=== PATIENT | male | born 2000 | race Two or more races ===

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

== ENCOUNTER 2019-05-05 19:08 | Emergency (ER) | payer OTHER ==
[~2019-05-05] VITALS: Ht 180.3 cm; Wt 145.4 kg
[2019-05-05] MEDS ORDERED: CITA10TA5 PO (19:33)
[2019-05-05 20:02] LABS: HEMATOCRIT 48.3 % (42.0-52.0); HEMOGLOBIN 15.8 g/dl (13.5-17.5); MEAN CORPUSCULAR HEMOGLOBIN 28.8 pg (27.0-33.0); MEAN CORPUSCULAR HGB CONC 32.7 g/dl (32.0-36.5); PLATELET COUNT, AUTOMATED 218 10^3/uL (150-450); RED BLOOD COUNT 5.49 10^6/uL (4.30-6.10); WHITE BLOOD COUNT 8.2 10^3/uL (4.0-10.0)
[2019-05-05 20:27] LABS: ACETAMINOPHEN LEVEL < 2.0 UG/ML (10.0-30.0); ALBUMIN 4.5 GM/DL (3.2-5.2); ALT/SGPT 39 U/L (12-78); BILIRUBIN,DIRECT < 0.1 MG/DL (0.0-0.2); BILIRUBIN,TOTAL 0.3 MG/DL (0.2-1.0); BLOOD UREA NITROGEN 18 MG/DL (7-18); CALCIUM LEVEL 9.6 MG/DL (8.5-10.1); CARBON DIOXIDE LEVEL 30 MEQ/L (21-32); CHLORIDE LEVEL 104 MEQ/L (98-107); ETHYL ALCOHOL (ETHANOL) < 0.003 % (0.000-0.010); GLUCOSE, FASTING 98 MG/DL (70-100); POTASSIUM SERUM 4.3 MEQ/L (3.5-5.1); SALICYLATE LEVEL < 1.7 MG/DL (5.0-30.0); SODIUM LEVEL 138 MEQ/L (136-145); TOTAL PROTEIN 8.2 GM/DL (6.4-8.2)
[2019-05-05 20:44] LABS: AMPHETAMINES LEVEL URINE NEGATIVE (NEGATIVE); BARBITURATES URINE NEGATIVE (NEGATIVE); BENZODIAZEPINES URINE NEGATIVE (NEGATIVE); CANNABINOIDS URINE NEGATIVE (NEGATIVE); COCAINE METABOLITE URINE NEGATIVE (NEGATIVE); METHADONE URINE NEGATIVE (NEGATIVE); OPIATES URINE NEGATIVE (NEGATIVE); PHENCYCLIDINE URINE NEGATIVE (NEGATIVE)
[2019-05-05 20:51] VITALS: BP 149/79
== END 2019-05-05 20:53 | disposition home or self-care (01) ==
LOC: M ED 19:08
DX: F98.9 Unspecified behavioral and emotional disorders with onset usually occurring in childhood and adolescence (principal); F43.0 Acute stress reaction; Z79.899 Other long term (current) drug therapy; Z88.8 Allergy status to other drugs, medicaments and biological substances
CPT/HCPCS: 80048; 80076; 80307; 84443; 85027; 99284; G0480

== ENCOUNTER 2019-12-28 17:10 | Emergency (ER) | payer OTHER ==
[~2019-12-28] VITALS: Ht 182.9 cm; Wt 157.7 kg
[~2019-12-28 17:10] MED LIST: CITA10TA5 PO
[2019-12-28 17:17] VITALS: BP 132/80
[2019-12-28 18:13] LABS: HEMATOCRIT 47.3 % (42.0-52.0); HEMOGLOBIN 15.6 g/dl (13.5-17.5); MEAN CORPUSCULAR HEMOGLOBIN 28.9 pg (27.0-33.0); MEAN CORPUSCULAR VOLUME 87.6 fl (80.0-96.0); PLATELET COUNT, AUTOMATED 204 10^3/uL (150-450); WHITE BLOOD COUNT 7.2 10^3/uL (4.0-10.0)
[2019-12-28 18:15] LABS: AMPHETAMINES LEVEL URINE NEGATIVE (NEGATIVE); BARBITURATES URINE NEGATIVE (NEGATIVE); BENZODIAZEPINES URINE NEGATIVE (NEGATIVE); CANNABINOIDS URINE NEGATIVE (NEGATIVE); COCAINE METABOLITE URINE NEGATIVE (NEGATIVE); METHADONE URINE NEGATIVE (NEGATIVE); OPIATES URINE NEGATIVE (NEGATIVE); PHENCYCLIDINE URINE NEGATIVE (NEGATIVE)
[2019-12-28 18:49] LABS: ACETAMINOPHEN LEVEL < 2.0 UG/ML (10.0-30.0); ALBUMIN 4.3 GM/DL (3.2-5.2); ALT/SGPT 34 U/L (12-78); BILIRUBIN,DIRECT < 0.1 MG/DL (0.0-0.2); BILIRUBIN,TOTAL 0.3 MG/DL (0.2-1.0); BLOOD UREA NITROGEN 14 MG/DL (7-18); CALCIUM LEVEL 9.5 MG/DL (8.5-10.1); CARBON DIOXIDE LEVEL 31 MEQ/L (21-32); CHLORIDE LEVEL 105 MEQ/L (98-107); CREATININE FOR GFR 0.95 MG/DL (0.70-1.30); ETHYL ALCOHOL (ETHANOL) 0.004 % (0.000-0.010); GLUCOSE, FASTING 79 MG/DL (70-100); POTASSIUM SERUM 4.3 MEQ/L (3.5-5.1); SALICYLATE LEVEL < 1.7 MG/DL (5.0-30.0); SODIUM LEVEL 137 MEQ/L (136-145); THYROID STIMULATING HORMONE 0.817 uIU/ML (0.463-3.98); TOTAL PROTEIN 7.6 GM/DL (6.4-8.2)
== END 2019-12-28 20:18 | disposition home or self-care (01) ==
LOC: M ED 17:10
DX: F43.0 Acute stress reaction (principal); F41.9 Anxiety disorder, unspecified; Z79.899 Other long term (current) drug therapy; Z88.1 Allergy status to other antibiotic agents
CPT/HCPCS: 80048; 80076; 80307; 84443; 85027; 99284; G0480

== ENCOUNTER 2020-10-13 14:17 | Inpatient (IN) | payer OTHER ==
[~2020-10-13] VITALS: Ht 182.9 cm; Wt 150.7 kg
[2020-10-13 15:00] LABS: HEMATOCRIT 45.8 % (42.0-52.0); HEMOGLOBIN 15.3 g/dl (13.5-17.5); MEAN CORPUSCULAR HEMOGLOBIN 29.1 pg (27.0-33.0); MEAN CORPUSCULAR HGB CONC 33.4 g/dl (32.0-36.5); MEAN CORPUSCULAR VOLUME 87.2 fl (80.0-96.0); PLATELET COUNT, AUTOMATED 182 10^3/uL (150-450); RED BLOOD COUNT 5.25 10^6/uL (4.30-6.10); WHITE BLOOD COUNT 6.6 10^3/uL (4.0-10.0)
[2020-10-13 15:25] LABS: AMPHETAMINES LEVEL URINE NEGATIVE (NEGATIVE); BARBITURATES URINE NEGATIVE (NEGATIVE); BENZODIAZEPINES URINE NEGATIVE (NEGATIVE); CANNABINOIDS URINE POSITIVE (NEGATIVE); COCAINE METABOLITE URINE NEGATIVE (NEGATIVE); METHADONE URINE NEGATIVE (NEGATIVE); OPIATES URINE NEGATIVE (NEGATIVE); PHENCYCLIDINE URINE NEGATIVE (NEGATIVE)
[2020-10-13 15:40] LABS: ACETAMINOPHEN LEVEL < 2.0 UG/ML (10.0-30.0); ALBUMIN 4.5 GM/DL (3.2-5.2); ALT/SGPT 29 U/L (12-78); BILIRUBIN,DIRECT 0.1 MG/DL (0.0-0.2); BILIRUBIN,TOTAL 0.7 MG/DL (0.2-1.0); BLOOD UREA NITROGEN 14 MG/DL (7-18); CALCIUM LEVEL 9.4 MG/DL (8.5-10.1); CARBON DIOXIDE LEVEL 28 MEQ/L (21-32); CHLORIDE LEVEL 107 MEQ/L (98-107); CREATININE FOR GFR 0.82 MG/DL (0.70-1.30); ETHYL ALCOHOL (ETHANOL) < 0.003 % (0.000-0.010); GLOMERULAR FILTRATION RATE > 60.0 (>60); GLUCOSE, FASTING 93 MG/DL (70-100); SALICYLATE LEVEL < 1.7 MG/DL (5.0-30.0); SODIUM LEVEL 139 MEQ/L (136-145); THYROID STIMULATING HORMONE 0.951 uIU/ML (0.358-3.740); TOTAL PROTEIN 7.2 GM/DL (6.4-8.2)
[2020-10-13] MEDS ORDERED: LOSA50TA88 PO (16:08)
[2020-10-13 19:05] LABS: RSV AMPLIFICATION NEGATIVE (NEGATIVE)
[2020-10-13] MEDS ORDERED: LOSARTAN 50MG TABLET PO ONE (19:15)
[2020-10-13] MEDS ORDERED: CitaloPRAM (CeleXA) 10 MG TABLET PO ONE (19:15)
[2020-10-13] MEDS ORDERED: ACETAMINOPHEN 325 MG TAB PO ONE (19:25)
[2020-10-13] MEDS ORDERED: NICOTINE 21MG/24HR 1 EA TRANSDERMAL TD ONE (19:25)
[2020-10-13] MEDS ORDERED: MAALOX 30 ML SUSP *UDC PO PRN (19:50)
[2020-10-13] MEDS ORDERED: MOM 30ML SUSPENSION UDC PO PRN (19:50)
[2020-10-13] MEDS ORDERED: ACETAMINOPHEN TAB 650MG DOSE (2X325MG) PO PRN (19:50)
[2020-10-13] MEDS ORDERED: traZODone 50 MG TAB PO PRN (19:50)
[2020-10-13] MEDS: LOSARTAN 50MG TABLET PO SCH (20:18)
[2020-10-13] MEDS ORDERED: CitaloPRAM (CeleXA) 10 MG TABLET PO SCH (21:00)
[2020-10-13 22:22] VITALS: BP 144/94
[2020-10-14] MEDS: QUEtiapine FUMARATE 25 MG TAB PO PRN ×2 (00:31→21:57)
[2020-10-14] MEDS: NICOTINE 21MG/24HR 1 EA TRANSDERMAL TD SCH (08:46)
--- NOTE | 2020-10-14 10:00 | MHHPE ---
[facility] HISTORY AND PHYSICAL DATE OF ADMISSION: 10/13/2020 IDENTIFYING DATA: A 20-year-old male, single, father of one child, living with his mother and father, working in [employer], who was admitted for suicidal thoughts. His legal status is 9.39. CHIEF COMPLAINT: "I wanted to make a point." HISTORY OF PRESENT ILLNESS: The patient reports he was overwhelmed and upset because of arguments with his father and mother. He pulled out a knife and threatened them that he would cut his wrist and they called the police and he was brought to the hospital. He reported he had no real intention. However, he wanted to make a point that he was upset. However, his mother thinks that he is depressed and he needs treatment. The patient reportedly ran out of his medication for the last two to three days and he became more irritable. Denies any depression or any signs of depression. PAST PSYCHIATRIC HISTORY: This is his first psychiatric hospitalization. He was on Citalopram 10 mg once daily. He was seeing a therapist. When he was 11 years old he tried to hang himself. However, he came to the ER and was discharged from there. DRUG/ALCOHOL HISTORY: The patient abuses cannabis three times a week. LEGAL HISTORY: Denies legal problems. MEDICAL HISTORY: The patient has a history of sleep apnea and hypertension. FAMILY HISTORY: Father and sister have history of depression. SOCIAL HISTORY: He was raised by his biological parents. He has two brothers, one sister. He reports that his father and mother are always argumentative. He completed high school graduation. Denies any physical or sexual abuse. MENTAL STATUS EXAMINATION: Well built, obese, tall. Made good eye contact. Mood is depressed. Affect is mood congruent. Psychomotor activity is normal. Thought process is linear, goal directed. Thought content: Denied any suicidal or homicidal ideas. Memory immediate, remote, recent is good. VITAL SIGNS: Temperature 98.2, pulse is 83, respiratory rate is 18, blood pressure is 144/84, pulse oximetry 98%. LABS: CBC within normal limits. CMP within normal limits. Toxicology was positive for cannabis. REVIEW OF SYSTEMS: Constitutional: Denied any night sweats or fever. HEENT: Negative for epistaxis, headache, hearing loss or sore throat. Respiratory: No cough. No shortness of breath or wheezing. Cardiovascular: Negative for chest pain, dyspnea. Gastrointestinal: No abdominal pain. No change in bowel habits. Genitourinary: No dysuria, no trouble voiding or hematuria. Neurologic: Negative for gait disturbances, numbness, and tingling. DIAGNOSIS: Depressive disorder not otherwise specified. Rule out major depressive disorder, recurrent. PLAN: Plan is to admit the patient to [facility]. He will be followed up by hospitalist for medical needs. The patient will be seen by [employer] [facility] and Case Management. He will be placed on all appropriate precautions like suicide precaution. He will participate in individual, group, and milieu therapy. His Citalopram medication will be increased to 20 mg once daily. The patient gets Seroquel for his sleep and depression as needed. ESTIMATED LENGTH OF STAY: Four to five days. Time spent is 30 minutes.
--- NOTE | 2020-10-14 17:01 | HPEPDOC ---
[facility] Medical History & Physical Date of Admission Oct 13, 2020 Date of Service: Oct 14, 2020 History and Physical CHIEF COMPLAINT: Self harm HISTORY OF PRESENT ILLNESS: Mr. Nelson is a 20 year old male who is in the inpatient mental health unit after threatening to self harm. He was upset during an argument with his parents and pulled out a knife and threatened to slit his wrist. Police was called, and he was brought to the ED. I saw him in the afternoon. He was pleasant. He is feeling well. Denies fever/chills, chest pain, dyspnea, abdominal pain, or dysuria. PAST MEDICAL HISTORY: 1. Hypertension 2. Depression 3. Pre-diabetes PAST SURGICAL HISTORY: 1. Appendectomy 2. Tonsillectomy SOCIAL HISTORY: Tobacco use: Vapes for the past 4 years ETOH: 1 or 2 drinks a week Illicit drug use: Marijuana every other day FAMILY HISTORY: Father: Bipolar, high cholesterol, pre-diabetes Mother: Diabetes Mellitus ALLERGIES: Please see below. REVIEW OF SYSTEMS: CONSTITUTIONAL: Denies fever or chills. HEENT: Denies sore throat. CARDIOVASCULAR: Denies chest pain. Denies lightheadedness. RESPIRATORY: Denies dyspnea. Denies cough. GASTROINTESTINAL: Denies abdominal pain. GENITOURINARY: Denies dysuria. SKIN: Denies rashes. HEMATOLOGY/ONCOLOGY: Denies bruises. MUSCULOSKELETAL: Denies weakness. NEUROLOGICAL: Denies neuropathy. PSYCHIATRIC: Reports depression. HOME MEDICATIONS: Please see below. PHYSICAL EXAMINATION: VITAL SIGNS: Temperature 98.2, pulse 83, respiratory rate 18, blood pressure 144/94, pulse oximetry 98% on room air. GENERAL APPEARANCE: Comfortable, in no apparent distress HEENT: Head normocephalic, atraumatic, EOMI, Sclera clear Neck: Supple CARDIOVASCULAR: Regular rate and rhythm LUNGS: Lungs clear to auscultation bilaterally ABDOMEN: Soft, non-tender, normal bowel sounds MUSCULOSKELETAL: Muscle strength 5/5 in extremities EXTREMITIES: No pitting edema CUTANEOUS: Warm and dry NEUROLOGICAL: CN3-12 grossly intact PSYCHIATRIC: Normal mood and affect LABORATORY DATA: See below. IMAGING: None MICROBIOLOGY: Please see below. ASSESSMENT and PLAN: 1. Suicidal Thoughts -Being managed in the inpatient mental health unit 2. Hypertension -Continue losartan 3. Pre-diabetes -Follow up regularly with PCP. -Avoid sweets, reduce intake of proceeded carbohydrates. Obtain at least 150 min per week of moderate intensity aerobic exercise Thank you for consulting us. We will sign off at this time. If there are any further question or concerns, please do not hesitate to contact us. Vital Signs Vital Signs Date Time Temp Pulse Resp B/P (MAP) Pulse Ox O2 Delivery O2 Flow Rate FiO2 10/14/20 09:59 Room Air 10/13/20 22:22 98.2 83 18 144/94 (111) 98 Laboratory Data Labs 24H Laboratory Tests 2 10/13/20 18:14: Coronavirus (COVID-19)(PCR) NEGATIVE, Influenza Type A (RT-PCR) NEGATIVE, Influenza Type B (RT-PCR) NEGATIVE, Respiratory Syncytial Virus (PCR) NEGATIVE Home Medications Scheduled Citalopram Hydrobromide (Citalopram HBr) 10 Mg Tablet, 10 MG PO QHS Losartan Potassium (Losartan Potassium) 50 Mg Tablet, 50 MG PO QHS Allergies Coded Allergies: gentamicin (Verified Allergy, Mild, rash/hives, 05/05/19) A-FIB/CHADSVASC A-FIB History Current/History of A-Fib/PAF?: No ADAM ABRAHAM DO Oct 14, 2020 17:01
[2020-10-14 17:31] VITALS: BP 150/72
[2020-10-14] MEDS: CitaloPRAM (CeleXA) 10 MG TABLET PO SCH (20:17)
[2020-10-14] MEDS: LOSARTAN 50MG TABLET PO SCH (20:21)
[2020-10-15 06:37] VITALS: BP 130/79
[2020-10-15] MEDS: NICOTINE 21MG/24HR 1 EA TRANSDERMAL TD SCH (09:34)
[2020-10-15 18:00] VITALS: BP 155/85
[2020-10-15] MEDS: LOSARTAN 50MG TABLET PO SCH (20:38)
[2020-10-15] MEDS: CitaloPRAM (CeleXA) 10 MG TABLET PO SCH (20:38)
[2020-10-15] MEDS: QUEtiapine FUMARATE 100 MG TAB PO SCH (21:41)
[2020-10-15] MEDS: traZODone 50 MG TAB PO PRN (22:39)
[2020-10-16 06:45] VITALS: BP 154/82
[2020-10-16] MEDS: NICOTINE 21MG/24HR 1 EA TRANSDERMAL TD SCH (08:15)
[2020-10-16 18:09] VITALS: BP 133/85
[2020-10-16] MEDS: LOSARTAN 50MG TABLET PO SCH (20:10)
[2020-10-16] MEDS: CitaloPRAM (CeleXA) 10 MG TABLET PO SCH (20:10)
[2020-10-16] MEDS: traZODone 50 MG TAB PO PRN (21:58)
[2020-10-16] MEDS: QUEtiapine FUMARATE 100 MG TAB PO SCH (21:58)
[2020-10-17 06:22] VITALS: BP 130/66
[2020-10-17] MEDS: NICOTINE 21MG/24HR 1 EA TRANSDERMAL TD SCH (08:22)
--- NOTE | 2020-10-17 10:51 | MHIPN ---
[facility] PSYCHIATRIC PROGRESS NOTE DATE OF SERVICE: 10/16/2020 HISTORY OF PRESENT ILLNESS: The patient today states that he is doing very well. He says "I slept like a rock." He says he took a combination of Seroquel and trazodone and that worked well for him. MENTAL STATUS EXAM: This patient is alert and oriented times 3. Eye contact is good. He is verbally spontaneous. There is no formal thought disorder noted. Mood is good. Affect is appropriate to mood. He is not psychotic, suicidal or homicidal. Concentration and memory is good. Insight and judgment good. DIAGNOSES: 1. Unspecified depressive disorder. 2. Rule out major depression. TREATMENT PLAN: At this point we will continue to monitor the patient for continued elevation and stabilization of his mood and continued resolution of suicidal and/or homicidal ideations.
--- NOTE | 2020-10-17 11:58 | MHIPN ---
[facility] PSYCHIATRIC PROGRESS NOTE DATE OF SERVICE: 10/15/2020 HISTORY OF PRESENT ILLNESS: The patient today tells me that he is feeling "good." He says he is not depressed, he is not suicidal and he slept better although not at baseline because he says the fact that they keep checking in the room wakes him up. MENTAL STATUS EXAM: This patient is alert and oriented times 3. Eye contact is good. He is verbally spontaneous. There is no formal thought disorder noted. Mood is good. Affect is appropriate. Patient is not psychotic, suicidal or homicidal. Concentration is fair. Memory is intact. Insight and judgment is fair. DIAGNOSES: 1. Unspecified depressive disorder. 2. Rule out major depressive disorder. TREATMENT PLAN: At this point we will continue to monitor the patient for continued elevation and stabilization of his mood and for resolution of any suicidal or homicidal ideations. I will increase the Seroquel to 100 mg at bedtime to see if he sleeps better and I will also order trazodone 50 mg at bedtime p.r.n. for insomnia in case he needs it. [place]DRaven
--- NOTE | 2020-10-17 14:22 | MHIPN ---
PROGRESS NOTE DATE: 10/17/2020 SUBJECTIVE: "I'm doing fine and I want to see my son." "I'll be going back to work after to the discharge." OBJECTIVE: This is a 20-year-old male single father of one child living with is mother and father, working at [employer], who was admitted because of suicidal thoughts. The patient reports that he never meant to hurt himself; however, he wanted to make a point with the family. He has some symptoms of depression. He did not take his medication for about two to three days and has become more irritable. This is his first psychiatric hospitalization. The patient abuses cannabis three times a week. The patient also has sleep apnea and hypertension issues. Currently the patient is stable. VITAL SIGNS: Temperature 97.3, pulse 63, respirations 18, blood pressure 130/66, pulse oximetry 98%. LABORATORY DATA: CBC within normal limits. CMP within normal limits. Toxicology was positive for cannabis. CURRENT MEDICATIONS: 1. Quetiapine 100 mg at night. 2. Citalopram 20 mg at night. DIAGNOSIS: Major depressive disorder. PLAN: Observe him for 24 hours and discharge him tomorrow. TIME SPENT: 25 minutes.
[2020-10-17 18:36] VITALS: BP 132/76
[2020-10-17 20:33] VITALS: BP 132/76
[2020-10-17] MEDS: LOSARTAN 50MG TABLET PO SCH (20:33)
[2020-10-17] MEDS: CitaloPRAM (CeleXA) 10 MG TABLET PO SCH (20:33)
[2020-10-17] MEDS: QUEtiapine FUMARATE 100 MG TAB PO SCH (21:40)
[2020-10-17] MEDS: traZODone 50 MG TAB PO PRN (21:40)
[2020-10-18] MEDS ORDERED: traZODone 50 MG TAB PO ONE (01:35)
[2020-10-18 06:33] VITALS: BP 140/72
[2020-10-18] MEDS ORDERED: QUET100T2 PO (07:44)
[2020-10-18] MEDS ORDERED: CELE10TA PO (07:44)
--- NOTE | 2020-10-18 08:55 | MHDS ---
[facility] DISCHARGE SUMMARY DATE OF ADMISSION: 10/13/2020 DATE OF DISCHARGE: 10/18/2020 DIAGNOSES: Major depressive disorder. IDENTIFYING DATA: He is a 20-year-old, male, single, father of one child, living with his parents, working in a [employer] company, was admitted because of suicidal thoughts. He reported that he never meant to hurt himself; however, he wanted to make a point with his family. For history of present illness, past psychiatric history, substance abuse history, medical history, family history, social history, please refer to the initial evaluation. MENTAL STATUS EXAMINATION: Tall, well-built male, who is cooperative. Made good eye contact. Psychomotor activity is normal. Speech, rate, rhythm, volume are good. Mood is euthymic. Affect is broad range. Denied suicidal or homicidal ideas. Denied any auditory hallucinations. Insight and judgment are good. COURSE IN THE HOSPITAL: The patient initially was depressed. Since he was not compliant with his medications, he was placed back on citalopram, which we eventually raised to 20 mg at night and he was also prescribed quetiapine. He made gradual recovery, started attending groups and activities, was also receiving individual therapy. He made good progress. His mood improved. He related well with the staff. No behavioral problems. Attended groups. Denied any side effect of the medication. Denied current suicidal or homicidal ideas. VITAL SIGNS: Temperature is 96.5, pulse is 64, respirations 18, blood pressure 114/72, pulse oximetry is 96. REVIEW OF SYSTEMS: Denied chest pain, palpitations. Denied any sore throat. Denied shortness of breath. Denied abdominal pain, dysuria or diarrhea. Denied numbness, tingling or dizziness. LABORATORY DATA: Complete blood count (CBC) within normal limits. Comprehensive metabolic panel (CMP) within normal limits. Toxicology was positive for cannabis. PLAN: The patient will go home. Follow up at [facility]. DISCHARGE MEDICATIONS: Quetiapine 100 mg at night and citalopram 20 mg in the a.m.
[2020-10-18] MEDS: NICOTINE 21MG/24HR 1 EA TRANSDERMAL TD SCH (08:59)
== END 2020-10-18 11:10 | disposition home or self-care (01) | DRG 754 ==
LOC: M ED 14:17 → M ED INP 19:48 → M PSY 22:16
PROVIDERS: ADMIT Psychiatry & Neurology Psychiatry; ATTEND Psychiatry & Neurology Psychiatry
DX: F32.9 Major depressive disorder, single episode, unspecified (principal); I10 Essential (primary) hypertension; R45.851 Suicidal ideations; F12.90 Cannabis use, unspecified, uncomplicated; R73.03 Prediabetes; F17.200 Nicotine dependence, unspecified, uncomplicated

== ENCOUNTER 2021-07-25 14:09 | Emergency (ER) | payer OTHER ==
[~2021-07-25] VITALS: Ht 180.3 cm; Wt 158.2 kg
[~2021-07-25 14:09] MED LIST changes: +CELE10TA PO; -CITA10TA5 PO; +CITA10TA7 PO; +LOSA50TA28 PO; +QUET100T2 PO
[2021-07-25 17:28] LABS: HEMOGLOBIN 15.3 g/dl (13.5-17.5); MEAN CORPUSCULAR HEMOGLOBIN 29.5 pg (27.0-33.0); MEAN CORPUSCULAR VOLUME 86.7 fl (80.0-96.0); PLATELET COUNT, AUTOMATED 224 10^3/uL (150-450); RED BLOOD COUNT 5.19 10^6/uL (4.30-6.10); WHITE BLOOD COUNT 8.1 10^3/uL (4.0-10.0)
[2021-07-25 17:58] LABS: ACETAMINOPHEN LEVEL < 2.0 UG/ML (10.0-30.0); ALBUMIN 4.6 GM/DL (3.2-5.2); ALT/SGPT 34 U/L (12-78); BILIRUBIN,DIRECT 0.1 MG/DL (0.0-0.2); BILIRUBIN,TOTAL 0.7 MG/DL (0.2-1.0); BLOOD UREA NITROGEN 9 MG/DL (7-18); CALCIUM LEVEL 9.4 MG/DL (8.5-10.1); CARBON DIOXIDE LEVEL 27 MEQ/L (21-32); CHLORIDE LEVEL 104 MEQ/L (98-107); CREATININE FOR GFR 1.04 MG/DL (0.70-1.30); ETHYL ALCOHOL (ETHANOL) < 0.003 % (0.000-0.010); GLOMERULAR FILTRATION RATE > 60.0 (>60); GLUCOSE, FASTING 93 MG/DL (70-100); POTASSIUM SERUM 4.2 MEQ/L (3.5-5.1); SALICYLATE LEVEL < 1.7 MG/DL (5.0-30.0); SODIUM LEVEL 137 MEQ/L (136-145); THYROID STIMULATING HORMONE 0.875 uIU/ML (0.358-3.740); TOTAL PROTEIN 7.7 GM/DL (6.4-8.2)
[2021-07-25 18:03] LABS: AMPHETAMINES LEVEL URINE NEGATIVE (NEGATIVE); BARBITURATES URINE NEGATIVE (NEGATIVE); BENZODIAZEPINES URINE NEGATIVE (NEGATIVE); CANNABINOIDS URINE POSITIVE (NEGATIVE); COCAINE METABOLITE URINE NEGATIVE (NEGATIVE); METHADONE URINE NEGATIVE (NEGATIVE); OPIATES URINE NEGATIVE (NEGATIVE); PHENCYCLIDINE URINE NEGATIVE (NEGATIVE)
[2021-07-25 20:28] VITALS: BP 115/68
== END 2021-07-25 20:30 | disposition home or self-care (01) ==
LOC: M ED 14:09
DX: F32.9 Major depressive disorder, single episode, unspecified (principal); I10 Essential (primary) hypertension; F41.9 Anxiety disorder, unspecified; F17.200 Nicotine dependence, unspecified, uncomplicated; Z79.899 Other long term (current) drug therapy; Z88.8 Allergy status to other drugs, medicaments and biological substances

== ENCOUNTER 2025-01-30 17:45 | Inpatient (IN) | payer OTHER ==
[~2025-01-30] VITALS: Ht 180.3 cm; Wt 174.6 kg
[2025-01-30 20:25] LABS: PLATELET COUNT, AUTOMATED 221 10^3/uL (150-450)
[2025-01-30 20:48] LABS: AMPHETAMINES LEVEL URINE NEGATIVE (NEGATIVE); BARBITURATES URINE NEGATIVE (NEGATIVE); COCAINE METABOLITE URINE NEGATIVE (NEGATIVE); METHADONE URINE NEGATIVE (NEGATIVE); OPIATES URINE NEGATIVE (NEGATIVE); PHENCYCLIDINE URINE NEGATIVE (NEGATIVE)
[2025-01-30 20:49] LABS: BENZODIAZEPINES URINE POSITIVE (NEGATIVE); CANNABINOIDS URINE POSITIVE (NEGATIVE)
[2025-01-30 20:50] LABS: ETHYL ALCOHOL (ETHANOL) 0.005 % (0.000-0.010)
[2025-01-30 20:52] LABS: ALT/SGPT 43 U/L (7.0-40); AST/SGOT 38 U/L (<34); CALCIUM LEVEL 9.5 MG/DL (8.5-10.1); CARBON DIOXIDE LEVEL 26 MMOL/L (20-31); CHLORIDE LEVEL 104 MMOL/L (98-107); CREATININE FOR GFR 0.97 MG/DL (0.70-1.30); GLOMERULAR FILTRATION RATE > 90.0 (>60); POTASSIUM SERUM 3.9 MMOL/L (3.5-5.1); SALICYLATE LEVEL < 3.0 MG/DL (<30); SODIUM LEVEL 143 MMOL/L (136-145)
[2025-01-30] MEDS: SERTRALINE HCL 50 MG TAB PO SCH (21:00)
[2025-01-30] MEDS: ROSUVASTATIN 10 MG TAB PO SCH (21:00)
[2025-01-30] MEDS: LOSARTAN 50 MG TABLET PO SCH (21:00)
[2025-01-30] MEDS: FAMOTIDINE 20 MG TAB PO SCH (21:00)
[2025-01-30] MEDS: ONDANSETRON 4MG ORAL DISINTEGRATING TAB PO ONE (21:34)
[2025-01-30] MEDS ORDERED: MOM 30 ML SUSPENSION UDC PO PRN (21:40)
[2025-01-30] MEDS ORDERED: ACETAMINOPHEN 325 MG TAB PO PRN (21:40)
[2025-01-30] MEDS ORDERED: IBUPROFEN 400 MG TAB PO PRN (21:40)
[2025-01-30] MEDS ORDERED: MAALOX 30 ML SUSP *UDC PO PRN (21:40)
[2025-01-30] MEDS ORDERED: HYDR-643 PO (22:14)
[2025-01-30] MEDS ORDERED: ZOLO100T PO (22:14)
[2025-01-30] MEDS ORDERED: LORA-753 PO (22:14)
[2025-01-30] MEDS ORDERED: MONT10TA97 PO (22:14)
[2025-01-30] MEDS ORDERED: DIPH50CA PO (22:14)
[2025-01-30] MEDS ORDERED: FAMO20TA PO (22:14)
[2025-01-30] MEDS ORDERED: LEVOTAB10 PO (23:12)
[2025-01-30] MEDS ORDERED: ROSU20TA86 PO (23:12)
[2025-01-30] MEDS ORDERED: SERT-141 PO (23:12)
[2025-01-30] MEDS ORDERED: HOME MED LIST COMPLETE! XX SCH (23:15)
[2025-01-30] MEDS: traZODone 50 MG TAB PO PRN (23:48)
[2025-01-31 06:44] VITALS: BP 121/63; TEMP 97.4; O2SAT 97
[2025-01-31 09:01] VITALS: BP 126/59; TEMP 97.9; O2SAT 95
[2025-01-31] MEDS ORDERED: DEXTROSE 50% 50 ML SYRINGE IV PRN (10:45)
[2025-01-31] MEDS ORDERED: GLUCOSE 4 GM CHEW PO PRN (10:45)
[2025-01-31] MEDS ORDERED: GLUCAGON INJ 1 MG VIAL SC PRN (10:45)
[2025-01-31] MEDS ORDERED: ONDANSETRON 4MG TAB PO PRN (10:50)
[2025-01-31] MEDS: FAMOTIDINE 20 MG TAB PO ONE (11:00)
[2025-01-31] MEDS: NICOTINE 21 MG/24 HR 1 EA TRANSDERMAL TD SCH (11:00)
[2025-01-31 11:39] LABS: PLATELET COUNT, AUTOMATED 198 10^3/uL (150-450)
[2025-01-31] MEDS: INSULIN LISPRO (NovoLOG) PER UNIT SC SCH (11:52)
[2025-01-31 11:59] LABS: ESTIMATED AVERAGE GLUCOSE 120.0 MG/DL (60-110)
[2025-01-31 12:05] LABS: CK-MB VALUE MASS 1.2 NG/ML (<3.6)
[2025-01-31 12:06] LABS: CPK CREATINE PHOSPHOKINASE 157 U/L (46-171); MB/CK RELATIVE INDEX 0.76 (< OR =4)
[2025-01-31 12:07] LABS: ALT/SGPT 39 U/L (7.0-40); AST/SGOT 30 U/L (<34); CALCIUM LEVEL 9.4 MG/DL (8.5-10.1); CARBON DIOXIDE LEVEL 29 MMOL/L (20-31); CHLORIDE LEVEL 104 MMOL/L (98-107); CHOLESTEROL LEVEL 173 MG/DL (<200); CHOLESTEROL RISK RATIO 5.11 (<5); CREATININE FOR GFR 0.99 MG/DL (0.70-1.30); GLOMERULAR FILTRATION RATE > 90.0 (>60); LDL CHOLESTEROL 99.4 MG/DL (<100); NON-HDL-C 139.2 MG/DL; POTASSIUM SERUM 4.1 MMOL/L (3.5-5.1); SODIUM LEVEL 142 MMOL/L (136-145); TRIGLYCERIDES LEVEL 199 MG/DL (<150)
[2025-01-31 15:18] VITALS: BP 140/80; TEMP 97.9; O2SAT 97
[2025-01-31 20:06] VITALS: BP 140/80
[2025-02-01 06:25] VITALS: BP 142/70; TEMP 97.8; O2SAT 98
== END 2025-02-01 11:52 | disposition home or self-care (01) | DRG 751 ==
LOC: M ED 17:45 → M ED INP 21:36 → UNDOADMIN 21:36 → M PSY 23:29
PROVIDERS: ADMIT Psychiatry & Neurology Neurology; ATTEND Psychiatry & Neurology Neurology
DX: F33.1 Major depressive disorder, recurrent, moderate (principal); I10 Essential (primary) hypertension; R45.851 Suicidal ideations; F41.1 Generalized anxiety disorder; Z88.8 Allergy status to other drugs, medicaments and biological substances; K21.9 Gastro-esophageal reflux disease without esophagitis; K58.8 Other irritable bowel syndrome; E66.9 Obesity, unspecified; R73.03 Prediabetes; Z79.899 Other long term (current) drug therapy